=== PATIENT | male | born 1995 | race Caucasian/White ===

== ENCOUNTER 2019-08-19 17:21 | Emergency (ER) | payer OTHER ==
[~2019-08-19] VITALS: Ht 175.3 cm; Wt 80.7 kg
[~2019-08-19 17:21] MED LIST: PHENERGAN25 MG RC; Tamiflu75 MG PO; Zofran Odt4 MG SL
== END 2019-08-19 20:05 | disposition home or self-care (01) ==
LOC: ER 17:21
DX: S61.012A Laceration without foreign body of left thumb without damage to nail, initial encounter (principal); W26.0XXA Contact with knife, initial encounter; Y92.009 Unspecified place in unspecified non-institutional (private) residence as the place of occurrence of the external cause
CPT/HCPCS: 12001; 99282-25

== ENCOUNTER 2022-03-13 01:51 | Observation (INO) | payer OTHER ==
[~2022-03-13] VITALS: Ht 175.3 cm; Wt 95.7 kg
[2022-03-13 02:09] LABS: Hematocrit 42.7 % (37.0-53.0); Hemoglobin 14.7 g/dL (13.5-17.5); Mean Corpuscular HGB 29.2 pg (26.0-34.0); Mean Corpuscular HGB Conc 34.4 g/dL (31.5-36.5); Mean Corpuscular Volume 85 fL (80-100); Mean Platelet Volume 10.2 fL (9.1-12.4); Platelet Count 411 K/mm3 (150-400); RDW Coefficient Variation 12.7 % (11.7-14.2); RDW Standard Deviation 38.6 fL (35.1-46.3); Red Blood Cell Count 5.04 M/mm3 (4.30-5.90); White Blood Cell Count 18.34 K/mm3 (4.00-11.30)
[2022-03-13 02:21] LABS: Ethanol (Alcohol), Blood, Med <3 mg/dL
[2022-03-13 02:23] LABS: International Normalized Ratio 1.03; Prothrombin Time Results 10.8 Sec (9.7-11.5)
[2022-03-13 02:28] LABS: BAND PERCENT MAN 1 % (0-8); BASOPHILS PERCENT MAN 0 % (0-2); EOSINOPHILS ABSOLUTE MAN 0.55 K/mm3 (0.00-0.68); EOSINOPHILS PERCENT MAN 3 % (0-6); LYMPHOCYTES % ATYPICAL MANUAL 1 % (0-0); LYMPHOCYTES ABSOLUTE MAN 7.15 K/mm3 (0.84-5.20); LYMPHOCYTES PERCENT MAN 38 % (21-46); MONOCYTES ABSOLUTE MAN 1.65 K/mm3 (0.16-1.47); MONOCYTES PERCENT MAN 9 % (4-13); NEUTROPHILS ABSOLUTE MAN 8.98 K/mm3 (1.96-9.15); SEG NEUTROPHILS PERCENT MAN 48 % (41-73); TOTAL CELLS COUNTED 100
[2022-03-13 02:31] LABS: Alanine Aminotransfer (ALT/SGP 40 U/L (12-78); Albumin, Blood 4.1 g/dL (3.4-5.0); Albumin/Globulin Ratio 1.3 (0.8-1.8); Alk Phos 68 U/L (50-136); Anion Gap 11 mmol/L (6-16); Aspartate Aminotrans (AST/SGOT 21 U/L (12-37); Bilirubin, Direct <0.1 mg/dL (0.0-0.3); Bilirubin, Indirect Unable to Calculate mg/dL (0.1-0.7); Bilirubin, Total 0.2 mg/dL (0.1-1.0); Blood Urea Nitrogen 21 mg/dL (8-24); Bun/Creatinine Ratio 22.3 (12.0-20.0); CO2, Blood 24 mmol/L (21-32); Chloride, Blood 105 mmol/L (98-108); Creatinine, Blood 0.94 mg/dL (0.60-1.20); Globulin, Blood 3.2 g/dL (2.2-4.0); Glomerular Filtration Rate 115 (60-); Glucose, Blood 215 mg/dL (70-99); Potassium, Blood 3.1 mmol/L (3.5-5.5); Sodium, Blood 140 mmol/L (136-145); Total Protein, Blood 7.3 g/dL (6.4-8.2)
[2022-03-13 06:50] LABS: U Amphetamine Screen Not Detected; U Barbituate Screen Not Detected; U Benzodiazapine Screen Not Detected; U Buprenorphine Screen Not Detected; U Cannabinoids Screen DETECTED; U Cocaine Screen Not Detected; U Methadone Screen Not Detected; U Methamphetamine Screen Not Detected; U Opiates Screen Not Detected; U Oxycodone Screen Not Detected; U Phencyclidine Screen Not Detected; U Propoxyphene Screen Not Detected
[2022-03-13 08:01] LABS: Source, Urine Clean Catch
[2022-03-13 08:03] LABS: Appearance, Urine Clear (Clear); Bilirubin, Urine Neg (Neg); Blood, Urine Neg (Neg); Color, Urine Yellow (P-Yellow); Glucose Qualitative, Urine 1+ (Neg); Ketones, Urine Neg (Neg); Leukocyte Esterase, Urine Neg (Neg); Nitrite, Urine Neg (Neg); Protein, Urine Neg (Neg); Urobilinogen, Urine NORM (Normal)
--- NOTE | 2022-03-13 16:31 | NUR ---
catheter tip of IV is intact and there is no swelling or redness on the site. applied gauze and coband. informed pt to leave coband on for 20-30 mins before taking it off.
--- NOTE | 2022-03-13 17:19 | NUR ---
SHIFT SUMMARY PTN TRANSFERRED FROM ER FOR ADMIT FOR RULE OUT UPPER GI BLEED, BUT ISSUE RESOLVED AND PTN D/C'D BEFORE ALL ADMISSION PAPERWORK COMPLETE. DR MARIO SAW PTN, TELE D/C'D, IV REMOVED, AND D/C PAPERWORK WAS REVIEWED WITH PTN. PTN AGREED TO FOLLOW-UP NEEDED AND TO RETURN SHOULD ANY SYMPTOMS OF HEMATEMESIS OCCUR OR ANY OTHER UNTOWARD EMERGENT SYMPTOMS. WAS PRESENT. PTN ESCORTED VIA WC BY JOSR SARKAR TO EXIT FOR D/C, ACCOMPANIED BY .
== END 2022-03-13 16:45 | disposition home or self-care (01) ==
LOC: ER 01:51 → ERHOLD 01:52 → MEDS 14:49
PROVIDERS: Student in an Organized Health Care Education/Training Program; ADMIT Student in an Organized Health Care Education/Training Program
DX: K92.0 Hematemesis (principal); R41.82 Altered mental status, unspecified; F17.210 Nicotine dependence, cigarettes, uncomplicated; R74.02 Elevation of levels of lactic acid dehydrogenase [LDH]
CPT/HCPCS: 74177; 80048; 80076; 81003; 83605; 85025; 85610; 85730; 86850; 86900; 86901; 93005; 93010; C9113; G0480; J1790; J3480; J7030; J7050; J7120; Q9967

== ENCOUNTER → 2024-03-26 | Outpatient (CLI) | payer OTHER ==
[2024-03-28 14:44] LABS: HEPATITIS B SURFACE ANTIBODY 140.55 IU/L
[2024-03-28 14:54] LABS: HEPATITIS B SURFACE ANTIGEN Negative (Negative)
[2024-03-28 18:34] LABS: HIV 1,2 COMBO ANTIGEN/ANTIBODY Negative (Negative)
[2024-03-29 13:49] LABS: HCV QNT BY NAAT (IU/ML) Not Detected; HCV QNT BY NAAT (LOG IU/ML) Not Detected; HCV QNT BY NAAT INTERP Not Detected (Not Detected)
== END | disposition home or self-care (01) ==
LOC: LAB SHORT 10:11 → LAB 10:11
PROVIDERS: Physician Assistant
DX: Z20.9 Contact with and (suspected) exposure to unspecified communicable disease (principal)
CPT/HCPCS: 84460; 87340; 87389; 87522